=== PATIENT | male | born 1975 | race Caucasian/White ===

== ENCOUNTER 2016-11-26 10:28 | Emergency (ER) | payer OTHER ==
--- NOTE | 2016-11-26 13:53 | ED ORDER SUMMARY ---
..... Patient: GHASSAN CISNEROS OrderSheet [facility] VisitID: [id number] [address] [place] [address] 41y, M Registration Date/Time: 11/26/2016 ORDER SHEET Weight: 65.7 kg (stated) Allergies: Hydrocodone, Benadryl GENERAL ORDERS: CBC w Diff Urgent (10:44 11/26/2016 Radha MCCLELLAND) (Ack 10:48 KHoerner) (11:16 JBoardley R.N.) CMP Urgent (10:44 11/26/2016 Radha MCCLELLAND) (Ack 10:48 RUIBoerner) (11:16 JBoardlezaira R.N.) UA-Culture if indicated Urgent (10:44 11/26/2016 Radha MCCLELLAND) (Ack 10:48 RUBIoerner) (11:51 LWhalen R.N.) Amylase Urgent (10:44 11/26/2016 Radha MCCLELLAND) (Ack 10:48 RUBIoerner) (11:16 JBoardley R.N.) Lipase Urgent (10:44 11/26/2016 Radha MCCLELLAND) (Ack 10:48 RUBIoerner) (11:17 JBoardley R.N.) Urine Drug Screen Urgent (12:15 11/26/2016 Radha MCCLELLAND) (Ack 12:16 RUBIoerner) (12:27 JBoardley R.N.) MEDICATION ORDERS: IV FLUIDS: IV NS : initial bolus 1000 mL (1000 mL/hr), then 150 mL/hr for 4h (NOW); Urgent (10:44 11/26/2016 Radha MCCLELLAND) (11:16 JBoardlezaira R.N.) Haldol IV 2 mg (HIGH ALERT MEDICATION, NOW) (12:13 11/26/2016 Radha MCCLELLAND) (Ack 12:22 JBoardley R.N.) (12:26 JBoardley R.N.) Zofran IV 4 mg (NOW) (12:13 11/26/2016 Radha MCCLELLAND) (Ack 12:22 JBoardley R.N.) (12:27 JBoardley R.N.) ORDER SHEET NOTES: [Electronically signed by Magdy Hill R.N. (15:35 11/26/2016)] [Electronically signed by Sonny Walters MD (22:06 11/27/2016)] [Electronically locked/signed by Magdy Hill R.N. (15:35 11/26/2016)]
--- NOTE | 2016-11-26 13:53 | ED CLINICAL REPORT ---
Clinical Report - Physicians/Mid Levels [facility] [address] [place] [address] 11/26/2016 10:32 Patient: GHASSAN CISNEROS Time Seen: 10:45. Arrived- By private vehicle. Historian- patient. HISTORY OF PRESENT ILLNESS Chief Complaint: ABDOMINAL PAIN. It is described as "pain", sharp, stabbing and cramping. No radiation. It is described as generalized in location. At its maximum, severity described as 8 / 10. When seen in the E.D., severity described as 8 / 10. This started about 6 days ago and is still present. It was abrupt in onset and has been constant and waxing/waning. The patient has had nausea. No loss of appetite, vomiting or diarrhea. No recent travel. Similar symptoms previously: Many times, chronically. ( The patient reports that he has a history of cyclic vomiting syndrome. He says sometimes he's been told that this is "gastric migraines." He also has been told to stop smoking marijuana in the past he says "it's the only thing that works." He acknowledges that he showers frequently throughout each day and that this helps improve his symptoms. He also says that he is disabled by this and is not able to work.). REVIEW OF SYSTEMS The patient has had constipation and constipation and experienced sweats. No difficulty with urination, pain with urination, urinary frequency or urinary problems or chills. No fever, calf pain, chest pain, cough or difficulty breathing. No pedal edema, palpitations, black stools or bloody stools. Last bowel movement- 4 days ago. All systems otherwise negative, except as recorded above. PAST HISTORY PCP - SABINA Galindo (). Problems: Sick Contact. Irritable Bowel Syndrome. Substance Abuse. Gastritis. Gastroesophageal Reflux Disease. Abdominal Pain. Vomiting. Additional Surgeries: Adenoidectomy. Endoscopy []. Tonsillectomy. Medications: None. Allergies: Benadryl. Hydrocodone. SOCIAL HISTORY Current every day light tobacco smoker (cigarette)- less than 1/2 a pack per day. History of drug use: marijuana. No alcohol use. He lives with parent(s). FAMILY HISTORY Denies family medical history. ADDITIONAL NOTES The nursing notes have been reviewed. PHYSICAL EXAM Vital Signs: 11/26/2016 10:43 BP: 154/84. HR: 93. RR: 22. O2 saturation: 100%. Temp: 98.5 F. Have been reviewed. Appearance: Alert. Eyes: Pupils equal, round and reactive to light. ENT: Pharynx normal. Neck: Normal inspection. Neck supple. CVS: Normal heart rate and rhythm. Heart sounds normal. Respiratory: No respiratory distress. Breath sounds normal. Abdomen: Soft and nontender. Bowel sounds normal. No organomegaly. No mass. Back: Normal inspection. Skin: Skin warm and dry. Normal skin color. Normal skin turgor. Extremities: Extremities exhibit normal ROM. LABS, X-RAYS, AND EKG Laboratory Tests: UA-Culture if indicated: (ASHLEIGH: 11/26/2016 10:50) ( [facility] 11/26/2016 11:19) Final results Test Result Flag Units (Reference) URINE COLOR YELLOW URINE APPEARANCE CLEAR URINE GLUCOSE NEGATIVE (NEGATIVE) URINE BILIRUBIN NEGATIVE (NEGATIVE) URINE KETONE NEGATIVE (NEGATIVE) URINE SPECIFIC GRAVITY 1.020 (1.010-1.030) URINE PH 6.0 (5.0-8.0) URINE PROTEIN NEGATIVE (NEGATIVE) URINE UROBILINOGEN 0.2 EU/dL (0.2-1.0) URINE NITRITE NEGATIVE (NEGATIVE) URINE BLOOD NEGATIVE (NEGATIVE) URINE LEUK ESTERASE NEGATIVE (NEGATIVE) URINE RBC NONE SEEN rbc/hpf (0-1) URINE WBC 0-1 wbc/hpf (0-1) URINE EPITHELIAL CELLS NONE SEEN EPI/hpf (0-5) URINE BACTERIA NONE SEEN (NONE SEEN) URINE COMMENT CULT NOT INDICATED URINE CULTURES ARE SET-UP BASED ON THE FOLLOWING CRITERIA:POSITIVE NITRITEPOSITIVE LEUKOCYTE ESTERASEGREATER THAN 10 WHITE BLOOD CELLSMODERATE (2+) OR GREATER BACTERIA CBC w Diff: (ASHLEIGH: 11/26/2016 11:07) ( [facility] 11/26/2016 11:32) Final results Test Result Flag Units (Reference) WHITE BLOOD COUNT 10.5 K/uL (4.5-11.5) RED BLOOD COUNT 4.88 M/uL (4.50-5.90) HEMOGLOBIN 14.3 gm/dL (13.5-17.5) HEMATOCRIT 42.8 % (41.0-53.0) MEAN CELL VOLUME 88 fL (80-100) MEAN CORPUSCULAR HGB 29 pg (26-34) MEAN CORPUSCULAR HGB CONC 33 g/dL (31-37) RED CELL DISTRIBUTION WIDTH 13.7 % (11.6-14.8) PLATELET COUNT 190 K/uL (150-400) NEUTROPHIL % 76.2 H % (50-75) LYMPH % 17.3 L % (25-40) MONO % 3.3 % (3-14) EOSINOPHIL % 2.9 % (0-4) BASOPHIL % 0.3 % (0-2) Urine Drug Screen: (ASHLEIGH: 11/26/2016 10:50) ( MsgRcvd 11/26/2016 13:06) Final results Test Result Flag Units (Reference) AMPHETAMINE/METHAMPHETAMINE NEGATIVE (NEGATIVE) BARBITURATE NEGATIVE (NEGATIVE) BENZODIAZEPINE NEGATIVE (NEGATIVE) CANNABINOID POSITIVE H (NEGATIVE) COCAINE NEGATIVE (NEGATIVE) ECSTASY NEGATIVE (NEGATIVE) METHADONE NEGATIVE (NEGATIVE) OPIATE NEGATIVE (NEGATIVE) The urine drug screen is a qualitative screening test fordrug overdose and abuse. All screen results should beconsidered as presumptive.Drugs screened for are as follows:BenzodiazepinesCocaineAmphetamines/MetamphetaminesTHC (Tetrahydrocannabinol)OpiatesBarbituratesEcstasyMethadonePositive results are unconfirmed. For confirmation, notifythe lab for the specimen to be sent to the reference lab.All confirmations must be performed by a differentmethodology.The ingestion of natural herbal and plant productscontaining Ephedra/Ephedra metabolites can produce in urineone or more substances capable of cross reacting withamphetamine/methamphetamine immunoassays. These testsprovide a preliminary result only. A more specificalternative chemical method must be used to obtain aconfirmed analytical result. CMP: (ASHLEIGH: 11/26/2016 11:07) ( WigRcvd 11/26/2016 11:51) Final results Test Result Flag Units (Reference) GLUCOSE 92 mg/dL (70-110) BUN 19 H mg/dL (7-18) CREATININE 0.8 mg/dL (0.6-1.3) Estimated GFR >60 mL/min Estimated GFR- >60 mL/min Note: Persistent reduction over 3 months in eGFR<60 mL/min/1.73 m2 defines CKD. Patients with eGFR values>=60 mL/min/1.73 m2 may also have CKD if evidence ofpersistent proteinuria. Additional information may be foundat www.kidney.org. SODIUM 144 mmol/L (136-145) POTASSIUM 4.3 mmol/L (3.5-5.1) CHLORIDE 106 mmol/L (98-107) CARBON DIOXIDE 26 mmol/L (21-32) CALCIUM 9.1 mg/dL (8.5-10.1) TOTAL PROTEIN 7.4 g/dL (6.4-8.2) ALBUMIN 4.1 g/dL (3.3-5.0) BILIRUBIN, TOTAL 0.4 mg/dL (0.0-1.0) ALKALINE PHOSPHATASE 83 U/L (46-116) AST (SGOT) 20 U/L (15-37) ALT (SGPT) 26 U/L (12-78) LIPASE 152 U/L (73-393) AMYLASE 70 U/L (25-115) . PROGRESS AND PROCEDURES Course of Care: Patient was treated in the emergency room with haloperidol. Shortly after the administration of this he said that he felt agitated and that his skin was crawling. Nursing staff report that he was pacing the room as well. Patient/family counseled. Old medical records reviewed. Disposition: Discharged. Condition: stable. CLINICAL IMPRESSION Adverse drug reaction. (halo as discussedperidol - please inform future providers of this adverse reaction). Chronic generalized abdominal pain. cannabinoid hyperemesis syndrome cyclic vomiting syndrome. INSTRUCTIONS No driving or operating machinery while taking medication. Sedative medication was given during your visit. Drink plenty of fluids. Avoid marijuana. (With your doctors about whether he would benefit from medications usually used to treat migraine headaches as discussed.). Warnings: Further evaluation is necessary. GENERAL WARNINGS: Return or contact your physician immediately if your condition worsens or changes unexpectedly, if not improving as expected, or if other problems arise. Prescription Medications: Zofran 4 mg: Take 1 orally every six hours as needed for nausea/vomiting. Dispense ten (10). No refills. Substitution is permissible. Follow-up: Follow up with a state inspector and neurologist- as recommended by your primary care physician. Understanding of the discharge instructions verbalized by patient. Follow-up with: [facility], , , [address], , [place], [address] Follow up tomorrow. Call for an appointment. (Electronically signed by Sonny Walters MD 11/27/2016 22:06)
--- NOTE | 2016-11-26 13:53 | ED NURSING NOTES ---
Clinical Report - Nurses [place] [address] [place] [address] 11/26/2016 10:32 Patient: GHASSAN CISNEROS TRIAGE Triage time 10:44 Nov 26 2016. Acuity: LEVEL 3. Chief Complaint: ABDOMINAL PAIN and NAUSEA. MAYELA COMA SCORE: Mayela Coma Scale: 15- eyes open spontaneously (4); best verbal response- oriented x 4 (5); best motor response- obeys commands (6). --10:53 Magdy Hill R.N. 10:43 11/26/16. BP: 154/84. HR: 93. RR: 22. O2 saturation: 100%. Temp: 98.5 F. Pain level now 8/10. --10:53 Magdy Hill R.N. Weight: 65.7 kg stated. Height/Length: 70 inches Per Patient. BMI: 20.8. --10:50 Magdy Hill R.N. Medications None. --10:48 Magdy Hill R.N. Allergies Hydrocodone. --10:49 Magdy Hill R.N. Benadryl. --10:49 Magdy Hill R.N. History Arrived by private vehicle. Historian: patient. Accompanied by family. Primary physician (). ( 2 months of severe abdominal pains which come and go.). PAST MEDICAL HX: No history of diabetes mellitus. No history of gastroesophageal reflux disease, peptic ulcer disease or gallstones. Immunizations: status is unknown. SOCIAL HX: Light tobacco smoker (cigarette)- less than 1/2 a pack per day. History of drug use: marijuana. No alcohol use. He has had contact with a sick family member. SELF HARM ASSESSMENT: A self harm assessment was performed. The patient answered "yes" to the question "Have you recently felt down, depressed, or hopeless?" and "no" to the question "Do you have thoughts of harming or killing yourself?". FALL RISK ASSESSMENT: Fall risk assessment completed. No fall risk identified. NUTRITIONAL RISK ASSESSMENT: The nutritional risk assessment revealed no deficiencies. FUNCTIONAL ASSESSMENT: Functional assessment: no impairments noted. LEARNING NEEDS ASSESSMENT: The learning needs assessment revealed no barriers. ABUSE ASSESSMENT: Abuse assessment: (yes) The patient was asked "Do you feel safe in your home?". SKIN INTEGRITY ASSESSMENT: Skin integrity risk assessment completed. No skin integrity risk identified. --10:53 Magdy Hill R.N. The patient has had nausea, vomiting and abdominal pain. Last oral intake by patient was breakfast. --10:54 Magdy Hill R.N. PROBLEMS: Irritable Bowel Syndrome. Substance Abuse. Gastritis. Gastroesophageal Reflux Disease. Abdominal Pain. Vomiting. Immunizations. --10:51 Magdy Hill R.N. ADDITIONAL SURGERIES: Adenoidectomy. Endoscopy []. Tonsillectomy. --10:51 Magdy Hill R.N. Interventions ID and allergy band on patient. --10:53 Magdy Hill R.N. PHYSICAL ASSESSMENT Ambulatory to room. GENERAL / NEURO / PSYCH: Alert. Oriented X 4. Appears in pain, anxious and in distress. HEENT: Mucous membranes are pink. RESPIRATORY: Respirations not labored. Breath sounds within normal limits. CVS: Normal sinus rhythm noted. Capillary refill less than 2 seconds. GI / : The patient has had nausea. Emesis noted. Abdominal tenderness in the upper abdomen. Normal genitalia. ( Last BM 4 days ago). SKIN: Skin is warm and dry. --10:55 Magdy Hill R.N. NURSING PROGRESS NOTES The initial plan of care for this patient includes an assessment with efforts to address patient positioning; impairment of the gastrointestinal system. Pulse oximeter and NIBP monitor placed on patient. Patient gowned. Head of bed elevated (45). Reassurance given. Call light placed in reach. Side rails up x 1. Bed placed in lowest position. Brakes of bed on. --10:55 Magdy Hill R.N. 11:06 11/26/2016 One (1) unsuccessful IV access attempt including the left antecubital space. Applied manual pressure. --11:11 Mary Valverde R.N. <<STRICKEN ENTRY-- Patient ID band checked for patient name and birthdate. Blood samples drawn from the left antecubital space with syringe 22g by nurse ; labeled in presence of the patient and sent to lab: green and purple top. --11:12 Mary Valverde R.N. --END STRIKE>> Charted On Wrong Patient --11:24 Mary Valverde R.N. 11:06 11/26/2016 Site #1 started via IV in the right wrist with an 22g angiocath, with aseptic technique and good blood return; one attempt. Blood drawn: rainbow set. Labeled in the presence of the patient and sent to the lab. Saline lock flushed with 10 mL saline. --11:16 Gera Solorio R.N. 11:11/26/2016 Started bag #1 1000 mL IV Fluids IV NS (Saline); at 1000 mL/hr over 1 hour(s) via site #1. Allergies verified and confirmed 5 rights. IV patency established. IV site checked: no pain, redness, or swelling. IV flushed thoroughly pre- and post-medication administration. Completed per protocol. --11:16 Gera Solorio R.N. <<STRICKEN ENTRY-- 11:21 11/26/16. RR: 16. O2 saturation: 99% on nasal cannula at 2 liters/minute. --11:23 Mary Valverde R.N. --END STRIKE>> Charted on wrong patient. --11:24 Mary Valverde R.N. <<STRICKEN ENTRY-- 11:23 11/26/16. Patient informed about reason for wait and about plan of care. ( pt states he feels SOB. Dr. Walters notified. pt given water.). --11:23 Mary Valverde R.N. --END STRIKE>> Charted On Wrong Patient --11:24 Mary Valverde R.N. late entry - (accidently cancelled previous entry) 11:12. Patient ID band checked for patient name and birthdate. Blood samples drawn from the left antecubital space with syringe and 22g needle by nurse ; labeled in presence of the patient and sent to lab: green and purple top. --11:27 Mary Valverde R.N. 12:26 11/26/2016 HALDOL (Haloperidol Lactate) IVP 2 mg given over 2 minute(s) via site #1. Allergies verified, confirmed 5 rights and sedative warning given to the patient. IV patency established. IV site checked: no pain, redness, or swelling. IV flushed thoroughly pre- and post-medication administration. IVP given by RN. --12:26 Gera Solorio R.N. 12:27 11/26/2016 Zofran (Ondansetron HCl) IVP 4 mg given over 2 minute(s) via site #1. Allergies verified and confirmed 5 rights. IV patency established. IV site checked: no pain, redness, or swelling. IV flushed thoroughly pre- and post-medication administration. IVP given by RN. --12:27 Gera Solorio R.N. ( Patient pacing in room states feels like skin is on fire and is feeling very agitated. States no pain relief in abdomen. Reported to MD no further orders received.). --12:53 Magdy Hill R.N. 13:28 pt still pacing in room, he states the pain is "better" but he is sstill feeling like he "wants to crawl out of his skin". --13:30 Pam Medrano R.N. DISPOSITION / DISCHARGE 13:44 11/26/2016 Site #1 removed upon discharge. Catheter intact. Bandage applied. --13:59 Fareed Troy R.N. 14:00 11/26/16. Departure time: 1348. ( pt agitated at discharge, brother coming to pickup pt, Discharge instructions given with MD at bedside. Discharge vitals not performed as to not agitate pt and MD aware.). No learning barriers present. Discharge instructions provided and reviewed with the patient. Reviewed medication(s) side effects, precautions, dosing and course information. Prescription(s) given to the patient. Reviewed need to stop smoking (stop using marijuana). Patient verbalized understanding. Written instructions provided in [place]. The patient was discharged by the physician. He was discharged home. He left the Emergency Department ambulatory and via private vehicle. Family member driving. --14:00 Fareed Troy R.N. Locked/Released at 11/26/2016 15:35 by Magdy Hill R.N.
--- NOTE | 2016-11-26 13:53 | ED ORDER SUMMARY ---
..... Patient: GHASSAN CISNEROS OrderSheet [facility] VisitID: [id number] [address] [place] [address] 41y, M Registration Date/Time: 11/26/2016 ORDER SHEET Weight: 65.7 kg (stated) Allergies: Hydrocodone, Benadryl GENERAL ORDERS: CBC w Diff Urgent (10:44 11/26/2016 Radha MCCLELLAND) (Ack 10:48 KHoerner) (11:16 JBoardley R.N.) CMP Urgent (10:44 11/26/2016 Radha MCCLELLAND) (Ack 10:48 RUBIoerner) (11:16 JBoardlezaira R.N.) UA-Culture if indicated Urgent (10:44 11/26/2016 Radha MCCLELLAND) (Ack 10:48 RUBIoerner) (11:51 LWhalen R.N.) Amylase Urgent (10:44 11/26/2016 Radha MCCLELLAND) (Ack 10:48 RUBIoerner) (11:16 JBoardley R.N.) Lipase Urgent (10:44 11/26/2016 Radha MCCLELLAND) (Ack 10:48 RUBIoerner) (11:17 JBoardley R.N.) Urine Drug Screen Urgent (12:15 11/26/2016 Radha MCCLELLAND) (Ack 12:16 RUBIoerner) (12:27 JBoardley R.N.) MEDICATION ORDERS: IV FLUIDS: IV NS : initial bolus 1000 mL (1000 mL/hr), then 150 mL/hr for 4h (NOW); Urgent (10:44 11/26/2016 Radha MCCLELLAND) (11:16 JBoardlezaira R.N.) Haldol IV 2 mg (HIGH ALERT MEDICATION, NOW) (12:13 11/26/2016 Radha MCCLELLAND) (Ack 12:22 JBoardley R.N.) (12:26 JBoardley R.N.) Zofran IV 4 mg (NOW) (12:13 11/26/2016 Radha MCCLELLAND) (Ack 12:22 JBoardley R.N.) (12:27 JBoardley R.N.) ORDER SHEET NOTES: [Electronically signed by Magdy Hill R.N. (15:35 11/26/2016)] [Electronically signed by Sonny Walters MD (22:06 11/27/2016)] [Electronically locked/signed by Magdy Hill R.N. (15:35 11/26/2016)]
--- NOTE | 2016-11-26 13:53 | ED CLINICAL REPORT ---
Clinical Report - Physicians/Mid Levels [facility] [address] [place] [address] 11/26/2016 10:32 Patient: GHASSAN CISNEROS Time Seen: 10:45. Arrived- By private vehicle. Historian- patient. HISTORY OF PRESENT ILLNESS Chief Complaint: ABDOMINAL PAIN. It is described as "pain", sharp, stabbing and cramping. No radiation. It is described as generalized in location. At its maximum, severity described as 8 / 10. When seen in the E.D., severity described as 8 / 10. This started about 6 days ago and is still present. It was abrupt in onset and has been constant and waxing/waning. The patient has had nausea. No loss of appetite, vomiting or diarrhea. No recent travel. Similar symptoms previously: Many times, chronically. ( The patient reports that he has a history of cyclic vomiting syndrome. He says sometimes he's been told that this is "gastric migraines." He also has been told to stop smoking marijuana in the past he says "it's the only thing that works." He acknowledges that he showers frequently throughout each day and that this helps improve his symptoms. He also says that he is disabled by this and is not able to work.). REVIEW OF SYSTEMS The patient has had constipation and constipation and experienced sweats. No difficulty with urination, pain with urination, urinary frequency or urinary problems or chills. No fever, calf pain, chest pain, cough or difficulty breathing. No pedal edema, palpitations, black stools or bloody stools. Last bowel movement- 4 days ago. All systems otherwise negative, except as recorded above. PAST HISTORY PCP - SABINA Galindo (). Problems: Sick Contact. Irritable Bowel Syndrome. Substance Abuse. Gastritis. Gastroesophageal Reflux Disease. Abdominal Pain. Vomiting. Additional Surgeries: Adenoidectomy. Endoscopy []. Tonsillectomy. Medications: None. Allergies: Benadryl. Hydrocodone. SOCIAL HISTORY Current every day light tobacco smoker (cigarette)- less than 1/2 a pack per day. History of drug use: marijuana. No alcohol use. He lives with parent(s). FAMILY HISTORY Denies family medical history. ADDITIONAL NOTES The nursing notes have been reviewed. PHYSICAL EXAM Vital Signs: 11/26/2016 10:43 BP: 154/84. HR: 93. RR: 22. O2 saturation: 100%. Temp: 98.5 F. Have been reviewed. Appearance: Alert. Eyes: Pupils equal, round and reactive to light. ENT: Pharynx normal. Neck: Normal inspection. Neck supple. CVS: Normal heart rate and rhythm. Heart sounds normal. Respiratory: No respiratory distress. Breath sounds normal. Abdomen: Soft and nontender. Bowel sounds normal. No organomegaly. No mass. Back: Normal inspection. Skin: Skin warm and dry. Normal skin color. Normal skin turgor. Extremities: Extremities exhibit normal ROM. LABS, X-RAYS, AND EKG Laboratory Tests: UA-Culture if indicated: (ASHLEIGH: 11/26/2016 10:50) ( [facility] 11/26/2016 11:19) Final results Test Result Flag Units (Reference) URINE COLOR YELLOW URINE APPEARANCE CLEAR URINE GLUCOSE NEGATIVE (NEGATIVE) URINE BILIRUBIN NEGATIVE (NEGATIVE) URINE KETONE NEGATIVE (NEGATIVE) URINE SPECIFIC GRAVITY 1.020 (1.010-1.030) URINE PH 6.0 (5.0-8.0) URINE PROTEIN NEGATIVE (NEGATIVE) URINE UROBILINOGEN 0.2 EU/dL (0.2-1.0) URINE NITRITE NEGATIVE (NEGATIVE) URINE BLOOD NEGATIVE (NEGATIVE) URINE LEUK ESTERASE NEGATIVE (NEGATIVE) URINE RBC NONE SEEN rbc/hpf (0-1) URINE WBC 0-1 wbc/hpf (0-1) URINE EPITHELIAL CELLS NONE SEEN EPI/hpf (0-5) URINE BACTERIA NONE SEEN (NONE SEEN) URINE COMMENT CULT NOT INDICATED URINE CULTURES ARE SET-UP BASED ON THE FOLLOWING CRITERIA:POSITIVE NITRITEPOSITIVE LEUKOCYTE ESTERASEGREATER THAN 10 WHITE BLOOD CELLSMODERATE (2+) OR GREATER BACTERIA CBC w Diff: (ASHLEIGH: 11/26/2016 11:07) ( [facility] 11/26/2016 11:32) Final results Test Result Flag Units (Reference) WHITE BLOOD COUNT 10.5 K/uL (4.5-11.5) RED BLOOD COUNT 4.88 M/uL (4.50-5.90) HEMOGLOBIN 14.3 gm/dL (13.5-17.5) HEMATOCRIT 42.8 % (41.0-53.0) MEAN CELL VOLUME 88 fL (80-100) MEAN CORPUSCULAR HGB 29 pg (26-34) MEAN CORPUSCULAR HGB CONC 33 g/dL (31-37) RED CELL DISTRIBUTION WIDTH 13.7 % (11.6-14.8) PLATELET COUNT 190 K/uL (150-400) NEUTROPHIL % 76.2 H % (50-75) LYMPH % 17.3 L % (25-40) MONO % 3.3 % (3-14) EOSINOPHIL % 2.9 % (0-4) BASOPHIL % 0.3 % (0-2) Urine Drug Screen: (ASHLEIGH: 11/26/2016 10:50) ( MsgRcvd 11/26/2016 13:06) Final results Test Result Flag Units (Reference) AMPHETAMINE/METHAMPHETAMINE NEGATIVE (NEGATIVE) BARBITURATE NEGATIVE (NEGATIVE) BENZODIAZEPINE NEGATIVE (NEGATIVE) CANNABINOID POSITIVE H (NEGATIVE) COCAINE NEGATIVE (NEGATIVE) ECSTASY NEGATIVE (NEGATIVE) METHADONE NEGATIVE (NEGATIVE) OPIATE NEGATIVE (NEGATIVE) The urine drug screen is a qualitative screening test fordrug overdose and abuse. All screen results should beconsidered as presumptive.Drugs screened for are as follows:BenzodiazepinesCocaineAmphetamines/MetamphetaminesTHC (Tetrahydrocannabinol)OpiatesBarbituratesEcstasyMethadonePositive results are unconfirmed. For confirmation, notifythe lab for the specimen to be sent to the reference lab.All confirmations must be performed by a differentmethodology.The ingestion of natural herbal and plant productscontaining Ephedra/Ephedra metabolites can produce in urineone or more substances capable of cross reacting withamphetamine/methamphetamine immunoassays. These testsprovide a preliminary result only. A more specificalternative chemical method must be used to obtain aconfirmed analytical result. CMP: (ASHLEIGH: 11/26/2016 11:07) ( WigRcvd 11/26/2016 11:51) Final results Test Result Flag Units (Reference) GLUCOSE 92 mg/dL (70-110) BUN 19 H mg/dL (7-18) CREATININE 0.8 mg/dL (0.6-1.3) Estimated GFR >60 mL/min Estimated GFR- >60 mL/min Note: Persistent reduction over 3 months in eGFR<60 mL/min/1.73 m2 defines CKD. Patients with eGFR values>=60 mL/min/1.73 m2 may also have CKD if evidence ofpersistent proteinuria. Additional information may be foundat www.kidney.org. SODIUM 144 mmol/L (136-145) POTASSIUM 4.3 mmol/L (3.5-5.1) CHLORIDE 106 mmol/L (98-107) CARBON DIOXIDE 26 mmol/L (21-32) CALCIUM 9.1 mg/dL (8.5-10.1) TOTAL PROTEIN 7.4 g/dL (6.4-8.2) ALBUMIN 4.1 g/dL (3.3-5.0) BILIRUBIN, TOTAL 0.4 mg/dL (0.0-1.0) ALKALINE PHOSPHATASE 83 U/L (46-116) AST (SGOT) 20 U/L (15-37) ALT (SGPT) 26 U/L (12-78) LIPASE 152 U/L (73-393) AMYLASE 70 U/L (25-115) . PROGRESS AND PROCEDURES Course of Care: Patient was treated in the emergency room with haloperidol. Shortly after the administration of this he said that he felt agitated and that his skin was crawling. Nursing staff report that he was pacing the room as well. Patient/family counseled. Old medical records reviewed. Disposition: Discharged. Condition: stable. CLINICAL IMPRESSION Adverse drug reaction. (halo as discussedperidol - please inform future providers of this adverse reaction). Chronic generalized abdominal pain. cannabinoid hyperemesis syndrome cyclic vomiting syndrome. INSTRUCTIONS No driving or operating machinery while taking medication. Sedative medication was given during your visit. Drink plenty of fluids. Avoid marijuana. (With your doctors about whether he would benefit from medications usually used to treat migraine headaches as discussed.). Warnings: Further evaluation is necessary. GENERAL WARNINGS: Return or contact your physician immediately if your condition worsens or changes unexpectedly, if not improving as expected, or if other problems arise. Prescription Medications: Zofran 4 mg: Take 1 orally every six hours as needed for nausea/vomiting. Dispense ten (10). No refills. Substitution is permissible. Follow-up: Follow up with a administrative tech and neurologist- as recommended by your primary care physician. Understanding of the discharge instructions verbalized by patient. Follow-up with: [facility], , , [address], , [place], [address] Follow up tomorrow. Call for an appointment. (Electronically signed by Sonny Walters MD 11/27/2016 22:06)
--- NOTE | 2016-11-28 02:39 | ED DISCHARGE INSTRUCTIONS ---
Patient: GHASSAN CISNEROS General Instructions [facility] VisitID: [id number] [address] [place] [address] 41y, M Registration Date/Time: 11/26/2016 Adverse drug reaction. (halo as discussedperidol - please inform future providers of this adverse reaction). Chronic generalized abdominal pain. cannabinoid hyperemesis syndrome cyclic vomiting syndrome. INSTRUCTIONS No driving or operating machinery while taking medication. Sedative medication was given during your visit. Drink plenty of fluids. Avoid marijuana. (With your doctors about whether he would benefit from medications usually used to treat migraine headaches as discussed.). Warnings: Further evaluation is necessary. GENERAL WARNINGS: Return or contact your physician immediately if your condition worsens or changes unexpectedly, if not improving as expected, or if other problems arise. Prescription Medications: Zofran 4 mg: Take 1 orally every six hours as needed for nausea/vomiting. Dispense ten (10). No refills. Substitution is permissible. Follow-up: Follow up with a fiberglass fabricator and neurologist- as recommended by your primary care physician. Understanding of the discharge instructions verbalized by patient. Follow-up with: [facility], , , [address], [place], [address] Follow up tomorrow. Call for an appointment. ADDITIONAL INFORMATION Drug Reaction: Dystonic You are having a muscular reaction to a drug you have taken. This can cause tightening or stiffening of the muscles of the eyes, tongue, jaw, neck, back, arms and legs. If untreated, this reaction would last until the drug is eliminated naturally from your body. This could take up to three days. However, you have been treated with an "antidote", to reverse this reaction (Benadryl (diphenhydramine), Cogentin (benzatropine), or Artane (trihexyphenidyl) . Home Care: 1) You may eat and drink normally. Take your other prescribed meds as directed. Avoid alcohol during the next three days. 2) Take the antidote medicine for at least two days (48 hours) to prevent recurrence of symptoms. After two days, most of the offending medicine should be eliminated from your body. 3) If you feel the symptoms return after stopping the antidote, start the antidote medicine again for another 48 hours. If this does not help or if you run out of medicine, contact your doctor. Preventing Future Reactions 1) Most dystonic reactions are due to a class of drugs called PHENOTHIAZINES. This includes anti-nausea drugs such as Compazine, Phenergan, Tigan and Inapsine; as well as tranquillizers such as Thorazine, Mellaril and Haldol. If you have reacted to one drug in this class, any drug in this class will probably cause the same reaction. 2) Unless specifically advised by your doctor, do not take theoffending drug ever again . It will cause the same reaction in the future. In some cases where the offending drug is needed to treat your condition and no alternatives exist, each dose can be taken along with the antidote medicine. 3) Whenever you go to a doctor or hospital for treatment, tell the staff of your reaction to this drug so that it will not be used. Follow Up with your doctor as advised or in three days , if you are still feeling any muscle tightness. Get Prompt Medical Attention if any of the following occur: -- Symptoms return and are not controlled by starting the antidote medicine again -- Symptoms continue or require antidote medicine for more than three days Ondansetron Oral disintegrating tablet What is this medicine? ONDANSETRON (on SCOTT se fareed) is used to treat nausea and vomiting caused by chemotherapy. It is also used to prevent or treat nausea and vomiting after surgery. How should I use this medicine? These tablets are made to dissolve in the mouth. Do not try to push the tablet through the foil backing. With dry hands, peel away the foil backing and gently remove the tablet. Place the tablet in the mouth and allow it to dissolve, then swallow. While you may take these tablets with water, it is not necessary to do so. Talk to your laborer/key man regarding the use of this medicine in children. Special care may be needed. What side effects may I notice from receiving this medicine? Side effects that you should report to your doctor or health respite care provider as soon as possible: allergic reactions like skin rash, itching or hives, swelling of the face, lips, or tongue breathing problems dizziness fast or irregular heartbeat feeling faint or lightheaded, falls fever and chills swelling of the hands and feet tightness in the chest Side effects that usually do not require medical attention (report to your doctor or health respite care provider if they continue or are bothersome): constipation or diarrhea headache What may interact with this medicine? Do not take this medicine with any of the following medications: -apomorphine -cisapride -dofetilide -dronedarone -pimozide -thioridazine -ziprasidone This medicine may also interact with the following medications: -carbamazepine -phenytoin -rifampicin -tramadol -other medicines that prolong the QT interval (cause an abnormal heart rhythm) What if I miss a dose? If you miss a dose, take it as soon as you can. If it is almost time for your next dose, take only that dose. Do not take double or extra doses. Where should I keep my medicine? Keep out of the reach of children. Store between 2 and 30 degrees C (36 and 86 degrees F). Throw away any unused medicine after the expiration date. What should I tell my health care provider before I take this medicine? They need to know if you have any of these conditions: heart disease history of irregular heartbeat liver disease low levels of magnesium or potassium in the blood an unusual or allergic reaction to ondansetron, granisetron, other medicines, foods, dyes, or preservatives or trying to get breast-feeding What should I watch for while using this medicine? Check with your doctor or health respite care provider as soon as you can if you have any sign of an allergic reaction. You have been given the following additional information: Drug Reaction, Dystonic Ondansetron Oral disintegrating tablet No driving or operating machinery while taking medication. Sedative medication was given during your visit. (Electronically signed by Sonny Walters MD 11/27/2016 22:06)
--- NOTE | 2016-11-28 02:39 | ED MAR SUMMARY ---
..... Medication Administration Record [facility] [address] [place] [address] Patient: GHASSAN CISNEROS Visit ID: [id number] 41y, M Weight: 65.7 kg Height/Length: 70 in BMI: 20.8 ALLERGIES: Benadryl, Hydrocodone Start 11:06 11/26/2016 Gera Solorio R.N. Medication Administered: IV NS (SALINE), Dose: IV Fluids over 1 hour(s), Rate: 1000 mL/hr, Dispensed: 1000 mL bag, Site: #1 right wrist. Medication Ordered: IV NS : initial bolus 1000 mL (1000 mL/hr), then 150 mL/hr for 4h (NOW); Urgent. Given 12:26 11/26/2016 Gera Solorio R.N. Medication Administered: HALDOL [IVP] (HALOPERIDOL LACTATE), Dose: 2 mg IVP over 2 minute(s), Site: #1 right wrist. Medication Ordered: Haldol IV 2 mg (HIGH ALERT MEDICATION, NOW). Given 12:11/26/2016 Gera Solorio R.N. Medication Administered: ZOFRAN [IVP] (ONDANSETRON HCL), Dose: 4 mg IVP over 2 minute(s), Site: #1 right wrist. Medication Ordered: Zofran IV 4 mg (NOW).
--- NOTE | 2016-11-28 02:39 | ED DISCHARGE INSTRUCTIONS ---
Patient: GHASSAN CISNEROS General Instructions [facility] VisitID: [id number] [address] [place] [address] 41y, M Registration Date/Time: 11/26/2016 Adverse drug reaction. (halo as discussedperidol - please inform future providers of this adverse reaction). Chronic generalized abdominal pain. cannabinoid hyperemesis syndrome cyclic vomiting syndrome. INSTRUCTIONS No driving or operating machinery while taking medication. Sedative medication was given during your visit. Drink plenty of fluids. Avoid marijuana. (With your doctors about whether he would benefit from medications usually used to treat migraine headaches as discussed.). Warnings: Further evaluation is necessary. GENERAL WARNINGS: Return or contact your physician immediately if your condition worsens or changes unexpectedly, if not improving as expected, or if other problems arise. Prescription Medications: Zofran 4 mg: Take 1 orally every six hours as needed for nausea/vomiting. Dispense ten (10). No refills. Substitution is permissible. Follow-up: Follow up with a fire control technician and neurologist- as recommended by your primary care physician. Understanding of the discharge instructions verbalized by patient. Follow-up with: [facility], , , [address], [place], [address] Follow up tomorrow. Call for an appointment. ADDITIONAL INFORMATION Drug Reaction: Dystonic You are having a muscular reaction to a drug you have taken. This can cause tightening or stiffening of the muscles of the eyes, tongue, jaw, neck, back, arms and legs. If untreated, this reaction would last until the drug is eliminated naturally from your body. This could take up to three days. However, you have been treated with an "antidote", to reverse this reaction (Benadryl (diphenhydramine), Cogentin (benzatropine), or Artane (trihexyphenidyl) . Home Care: 1) You may eat and drink normally. Take your other prescribed meds as directed. Avoid alcohol during the next three days. 2) Take the antidote medicine for at least two days (48 hours) to prevent recurrence of symptoms. After two days, most of the offending medicine should be eliminated from your body. 3) If you feel the symptoms return after stopping the antidote, start the antidote medicine again for another 48 hours. If this does not help or if you run out of medicine, contact your doctor. Preventing Future Reactions 1) Most dystonic reactions are due to a class of drugs called PHENOTHIAZINES. This includes anti-nausea drugs such as Compazine, Phenergan, Tigan and Inapsine; as well as tranquillizers such as Thorazine, Mellaril and Haldol. If you have reacted to one drug in this class, any drug in this class will probably cause the same reaction. 2) Unless specifically advised by your doctor, do not take theoffending drug ever again . It will cause the same reaction in the future. In some cases where the offending drug is needed to treat your condition and no alternatives exist, each dose can be taken along with the antidote medicine. 3) Whenever you go to a doctor or hospital for treatment, tell the staff of your reaction to this drug so that it will not be used. Follow Up with your doctor as advised or in three days , if you are still feeling any muscle tightness. Get Prompt Medical Attention if any of the following occur: -- Symptoms return and are not controlled by starting the antidote medicine again -- Symptoms continue or require antidote medicine for more than three days Ondansetron Oral disintegrating tablet What is this medicine? ONDANSETRON (on SCOTT se fareed) is used to treat nausea and vomiting caused by chemotherapy. It is also used to prevent or treat nausea and vomiting after surgery. How should I use this medicine? These tablets are made to dissolve in the mouth. Do not try to push the tablet through the foil backing. With dry hands, peel away the foil backing and gently remove the tablet. Place the tablet in the mouth and allow it to dissolve, then swallow. While you may take these tablets with water, it is not necessary to do so. Talk to your credit cashier regarding the use of this medicine in children. Special care may be needed. What side effects may I notice from receiving this medicine? Side effects that you should report to your doctor or health auto care center manager as soon as possible: allergic reactions like skin rash, itching or hives, swelling of the face, lips, or tongue breathing problems dizziness fast or irregular heartbeat feeling faint or lightheaded, falls fever and chills swelling of the hands and feet tightness in the chest Side effects that usually do not require medical attention (report to your doctor or health auto care center manager if they continue or are bothersome): constipation or diarrhea headache What may interact with this medicine? Do not take this medicine with any of the following medications: -apomorphine -cisapride -dofetilide -dronedarone -pimozide -thioridazine -ziprasidone This medicine may also interact with the following medications: -carbamazepine -phenytoin -rifampicin -tramadol -other medicines that prolong the QT interval (cause an abnormal heart rhythm) What if I miss a dose? If you miss a dose, take it as soon as you can. If it is almost time for your next dose, take only that dose. Do not take double or extra doses. Where should I keep my medicine? Keep out of the reach of children. Store between 2 and 30 degrees C (36 and 86 degrees F). Throw away any unused medicine after the expiration date. What should I tell my health care provider before I take this medicine? They need to know if you have any of these conditions: heart disease history of irregular heartbeat liver disease low levels of magnesium or potassium in the blood an unusual or allergic reaction to ondansetron, granisetron, other medicines, foods, dyes, or preservatives or trying to get breast-feeding What should I watch for while using this medicine? Check with your doctor or health auto care center manager as soon as you can if you have any sign of an allergic reaction. You have been given the following additional information: Drug Reaction, Dystonic Ondansetron Oral disintegrating tablet No driving or operating machinery while taking medication. Sedative medication was given during your visit. (Electronically signed by Sonny Walters MD 11/27/2016 22:06)
--- NOTE | 2016-11-28 02:39 | ED MED RECONCILIATION SUMMARY ---
Patient: GHASSAN CISNEROS Medication Reconciliation Report [facility] VisitID: [id number] [address] [place] [address] 41y, M Registration Date/Time: 11/26/2016 Weight: 65.7 kg Height/Length: 70 in. BMI: 20.8 ALLERGIES: Benadryl, Hydrocodone The patient's Home Medications are listed below: NONE. The source(s) of the original Home Medication information: Not obtained. The following Medications were given to the patient in the Emergency Department: IV NS IV Fluids bolus 0, then 1000 mL/hr, administered: 11/26/2016 11:06:00 AM HALDOL [IVP] IVP 2 mg, administered: 11/26/2016 12:26:00 PM Zofran [IVP] IVP 4 mg, administered: 11/26/2016 12:27:00 PM The following Medications were prescribed to the patient: Zofran 4 mg: Take 1 orally every six hours as needed for nausea/vomiting. Dispense ten (10). No refills. Substitution is permissible. -- Sonny Walters MD
--- NOTE | 2016-11-28 02:39 | ED MED RECONCILIATION SUMMARY ---
Patient: GHASSAN CISNEROS Medication Reconciliation Report [facility] VisitID: [id number] [address] [place] [address] 41y, M Registration Date/Time: 11/26/2016 Weight: 65.7 kg Height/Length: 70 in. BMI: 20.8 ALLERGIES: Benadryl, Hydrocodone The patient's Home Medications are listed below: NONE. The source(s) of the original Home Medication information: Not obtained. The following Medications were given to the patient in the Emergency Department: IV NS IV Fluids bolus 0, then 1000 mL/hr, administered: 11/26/2016 11:06:00 AM HALDOL [IVP] IVP 2 mg, administered: 11/26/2016 12:26:00 PM Zofran [IVP] IVP 4 mg, administered: 11/26/2016 12:27:00 PM The following Medications were prescribed to the patient: Zofran 4 mg: Take 1 orally every six hours as needed for nausea/vomiting. Dispense ten (10). No refills. Substitution is permissible. -- Sonny Walters MD
--- NOTE | 2016-11-28 02:39 | ED MAR SUMMARY ---
..... Medication Administration Record [facility] [address] [place] [address] Patient: GHASSAN CISNEROS Visit ID: [id number] 41y, M Weight: 65.7 kg Height/Length: 70 in BMI: 20.8 ALLERGIES: Benadryl, Hydrocodone Start 11:06 11/26/2016 Gera Solorio R.N. Medication Administered: IV NS (SALINE), Dose: IV Fluids over 1 hour(s), Rate: 1000 mL/hr, Dispensed: 1000 mL bag, Site: #1 right wrist. Medication Ordered: IV NS : initial bolus 1000 mL (1000 mL/hr), then 150 mL/hr for 4h (NOW); Urgent. Given 12:26 11/26/2016 Gera Solorio R.N. Medication Administered: HALDOL [IVP] (HALOPERIDOL LACTATE), Dose: 2 mg IVP over 2 minute(s), Site: #1 right wrist. Medication Ordered: Haldol IV 2 mg (HIGH ALERT MEDICATION, NOW). Given 12:11/26/2016 Gera Solorio R.N. Medication Administered: ZOFRAN [IVP] (ONDANSETRON HCL), Dose: 4 mg IVP over 2 minute(s), Site: #1 right wrist. Medication Ordered: Zofran IV 4 mg (NOW).
== END 2016-11-26 13:48 | disposition home or self-care (01) ==
LOC: ED SRH 10:28
DX: T50.995A Adverse effect of other drugs, medicaments and biological substances, initial encounter (principal); R10.84 Generalized abdominal pain; R11.10 Vomiting, unspecified; F12.10 Cannabis abuse, uncomplicated; F17.210 Nicotine dependence, cigarettes, uncomplicated; K21.9 Gastro-esophageal reflux disease without esophagitis; Z88.5 Allergy status to narcotic agent; Z88.8 Allergy status to other drugs, medicaments and biological substances
CPT/HCPCS: 90004; 90100; 92235; 92530; 92760; 92761; 92762; 92763; 92764; 92765; 92766; 92767; 95059

== ENCOUNTER 2017-03-18 20:48 | Emergency (ER) | payer OTHER ==
--- NOTE | 2017-03-18 23:18 | ED CLINICAL REPORT ---
Clinical Report - Physicians/Mid Levels [facility] [address] [place] [address] 03/18/2017 20:48 Patient: GHASSAN CISNEROS Time Seen: 21:15. Arrived- By private vehicle. Historian- patient and family. HISTORY OF PRESENT ILLNESS Chief Complaint: ABDOMINAL PAIN. At its maximum, severity described as severe. When seen in the E.D., severity described as severe. It is described as "pain" and it is described as located in the upper abdomen. This started about 11 years ago, worse for days to weeks. and is still present. It has been constant. The patient has had nausea. No vomiting or diarrhea. (11 years 4 days worse). Similar symptoms previously: Many times. ( On a prior visit he did well with haldol and benadryl.. But subsequently he had a dystonic reacttion to Benadryl by his history.). REVIEW OF SYSTEMS No constipation, black stools, difficulty with urination, pain with urination or bloody stools. No fever, sore throat, blurred vision, chest pain or difficulty breathing. No cough, joint pain or skin rash. The patient has had a headache. 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 Problems: Sick Contact. Irritable Bowel Syndrome. Substance Abuse. Gastritis. Gastroesophageal Reflux Disease. Abdominal Pain. Vomiting. Additional Surgeries: Adenoidectomy. Endoscopy []. Tonsillectomy. SOCIAL HISTORY Current every day smoker. History of drug use By urine tox screen: marijuana. ADDITIONAL NOTES The nursing notes have been reviewed. PHYSICAL EXAM Vital Signs: 03/18/2017 23:50 BP: 110/62. HR: 73. RR: 16. O2 saturation: 99%. Pain level now: 11/29. 03/18/2017 21:00 BP: 110/74. HR: 76. RR: 22. O2 saturation: 100%. Temp: 98.3 F. Pain level now: 06/01. Appearance: Alert. Patient in severe distress. (Writhing and clenching fists). Eyes: No scleral icterus. ENT: Pharynx normal. Respiratory: No respiratory distress. Breath sounds normal. Chest nontender. Abdomen: Mild tenderness diffusely. Bowel sounds normal. Mass present. No rebound tenderness or guarding. Back: Normal inspection. Skin: Skin warm. Normal skin color. Extremities: Extremities exhibit normal ROM. No lower extremity edema. LABS, X-RAYS, AND EKG Laboratory Tests: UA-Culture if indicated: (ASHLEIGH: 03/18/2017 21:12) ( [facility] 03/18/2017 22:30) Final results Test Result Flag Units (Reference) URINE COLOR YELLOW URINE APPEARANCE CLEAR URINE GLUCOSE NEGATIVE (NEGATIVE) URINE BILIRUBIN NEGATIVE (NEGATIVE) URINE KETONE NEGATIVE (NEGATIVE) URINE SPECIFIC GRAVITY 1.025 (1.010-1.030) URINE PH 6.0 (5.0-8.0) URINE PROTEIN NEGATIVE (NEGATIVE) URINE UROBILINOGEN 0.2 EU/dL (0.2-1.0) URINE NITRITE NEGATIVE (NEGATIVE) URINE BLOOD NEGATIVE (NEGATIVE) URINE LEUK ESTERASE NEGATIVE (NEGATIVE) URINE RBC NONE SEEN rbc/hpf (0-1) URINE WBC 0-1 wbc/hpf (0-1) URINE EPITHELIAL CELLS RARE EPI/hpf (0-5) URINE BACTERIA TRACE (<1+) (NONE SEEN) URINE COMMENT CULT NOT INDICATED URINE CULTURES ARE SET-UP BASED ON THE FOLLOWING CRITERIA:POSITIVE NITRITEPOSITIVE LEUKOCYTE ESTERASEGREATER THAN 10 WHITE BLOOD CELLSMODERATE (2+) OR GREATER BACTERIA CBC w Diff: (ASHLEIGH: 03/18/2017 22:24) ( [facility] 03/18/2017 22:39) Final results Test Result Flag Units (Reference) WHITE BLOOD COUNT 10.9 K/uL (4.5-11.5) RED BLOOD COUNT 5.02 M/uL (4.50-5.90) HEMOGLOBIN 15.0 gm/dL (13.5-17.5) HEMATOCRIT 44.3 % (41.0-53.0) MEAN CELL VOLUME 88 fL (80-100) MEAN CORPUSCULAR HGB 30 pg (26-34) MEAN CORPUSCULAR HGB CONC 34 g/dL (31-37) RED CELL DISTRIBUTION WIDTH 13.1 % (11.6-14.8) PLATELET COUNT 267 K/uL (150-400) NEUTROPHIL % 66.3 % (50-75) LYMPH % 28.2 % (25-40) MONO % 3.3 % (3-14) EOSINOPHIL % 2.0 % (0-4) BASOPHIL % 0.2 % (0-2) Urine Drug Screen: (ASHLEIGH: 03/18/2017 21:12) ( [facility] 03/18/2017 22:09) Final results Test Result Flag Units (Reference) AMPHETAMINE/METHAMPHETAMINE NEGATIVE (NEGATIVE) BARBITURATE NEGATIVE (NEGATIVE) BENZODIAZEPINE NEGATIVE (NEGATIVE) CANNABINOID POSITIVE H (NEGATIVE) COCAINE NEGATIVE (NEGATIVE) ECSTASY NEGATIVE (NEGATIVE) METHADONE NEGATIVE (NEGATIVE) OPIATE POSITIVE H (NEGATIVE) The urine drug screen is a qualitative screening test fordrug overdose and abuse. All screen results should beconsidered as presumptive.Drugs screened for are as follows:BenzodiazepinesCocaineAmphetamines/MetamphetaminesTHC (Tetrahydrocannabinol)OpiatesBarbituratesEcstasyMethadonePositive results are unconfirmed. For confirmation, notifythe lab for the specimen to be sent to the reference lab.All confirmations must be performed by a differentmethodology.The ingestion of natural herbal and plant productscontaining Ephedra/Ephedra metabolites can produce in urineone or more substances capable of cross reacting withamphetamine/methamphetamine immunoassays. These testsprovide a preliminary result only. A more specificalternative chemical method must be used to obtain aconfirmed analytical result. CMP: (ASHLEIGH: 03/18/2017 22:24) ( [facility] 03/18/2017 22:51) Final results Test Result Flag Units (Reference) GLUCOSE 95 mg/dL (70-110) BUN 20 H mg/dL (7-18) CREATININE 1.1 mg/dL (0.6-1.3) Estimated GFR >60 mL/min Estimated GFR- >60 mL/min Note: Persistent reduction over 3 months in eGFR<60 mL/min/1.73 m2 defines CKD. Patients with eGFR values>=60 mL/min/1.73 m2 may also have CKD if evidence ofpersistent proteinuria. Additional information may be foundat www.kidney.org. SODIUM 144 mmol/L (136-145) POTASSIUM 3.6 mmol/L (3.5-5.1) CHLORIDE 105 mmol/L (98-107) CARBON DIOXIDE 26 mmol/L (21-32) CALCIUM 9.2 mg/dL (8.5-10.1) TOTAL PROTEIN 8.1 g/dL (6.4-8.2) ALBUMIN 5.1 H g/dL (3.3-5.0) BILIRUBIN, TOTAL 0.4 mg/dL (0.0-1.0) ALKALINE PHOSPHATASE 71 U/L (46-116) AST (SGOT) 16 U/L (15-37) ALT (SGPT) 26 U/L (12-78) LIPASE 173 U/L (73-393) . PROGRESS AND PROCEDURES Course of Care: 23:02 03/18/17. very angry. no Mr. Mckeon has a very difficult situation. He has significant constant pain with severe exacerbations. There has never been any indication of an acute surgical abdomen. He states that he did quit cannabis because of his pain. His urine toxicology is positive for cannabis and opioids and here is no corresponding medicine on his medication list. He has a history of an extrapyramidal reaction which he believes is from Benadryl. Because of the severity of his symptoms and the undesirability of opioids, I gave him IM Cogentin and Haldol. He probably had an extrapyramidal reaction to the Haldol. I discussed the risk extensively prior to giving the medication. We both felt that the current severe symptoms warranted the risk of an extrapyramidal reaction. He and his mother believe that no one cares and that he always gets the brush off. I tried fairly unsuccessfully to communicate that we do care very much but that his condition is extremely difficult to care for. I gave several suggestions for ways to move forward with his PCP. HE DEVELOPED SEVERAL HIVES ON HIS BACK WHILE IN THE ED. HE STATES THAT FREQUENTLY HAS HIVES WITH HIS ABDOMINAL PAIN. THAT MAY BE A CLUE BUT CANNOT BE ACTED UPON IN THE ED. HE ALSO MAY NEED PAIN MANAGEMENT REFERRAL. Disposition: Discharged. CLINICAL IMPRESSION Abdominal pain. EXTRAPRYAMADAL REACTION URTICARIA. CANNABIS ABUSE. INSTRUCTIONS (THE COGENTIN IS TO TREAT THE FIGETY FEELING ASK YOUR DR IF THERE IS A CONNECTION BETWEEN YOU HIVES AND YOUR ABDOMINAL PAIN ASK YOU PCP IF YOU NEED A PAIN MANAGEMENT REFERRAL.). Prescription Medications: Cogentin 1 mg: every 8 hours. Dispense ten (10). No refills. Follow-up: Follow up with your doctor [facility]. Understanding of the discharge instructions verbalized by patient and family. (Electronically signed by Yogi Hardy MD 03/21/2017 10:43)
--- NOTE | 2017-03-18 23:18 | ED CLINICAL REPORT ---
Clinical Report - Physicians/Mid Levels [facility] [address] [place] [address] 03/18/2017 20:48 Patient: GHASSAN CISNEROS Time Seen: 21:15. Arrived- By private vehicle. Historian- patient and family. HISTORY OF PRESENT ILLNESS Chief Complaint: ABDOMINAL PAIN. At its maximum, severity described as severe. When seen in the E.D., severity described as severe. It is described as "pain" and it is described as located in the upper abdomen. This started about 11 years ago, worse for days to weeks. and is still present. It has been constant. The patient has had nausea. No vomiting or diarrhea. (11 years 4 days worse). Similar symptoms previously: Many times. ( On a prior visit he did well with haldol and benadryl.. But subsequently he had a dystonic reacttion to Benadryl by his history.). REVIEW OF SYSTEMS No constipation, black stools, difficulty with urination, pain with urination or bloody stools. No fever, sore throat, blurred vision, chest pain or difficulty breathing. No cough, joint pain or skin rash. The patient has had a headache. 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 Problems: Sick Contact. Irritable Bowel Syndrome. Substance Abuse. Gastritis. Gastroesophageal Reflux Disease. Abdominal Pain. Vomiting. Additional Surgeries: Adenoidectomy. Endoscopy []. Tonsillectomy. SOCIAL HISTORY Current every day smoker. History of drug use By urine tox screen: marijuana. ADDITIONAL NOTES The nursing notes have been reviewed. PHYSICAL EXAM Vital Signs: 03/18/2017 23:50 BP: 110/62. HR: 73. RR: 16. O2 saturation: 99%. Pain level now: 11/29. 03/18/2017 21:00 BP: 110/74. HR: 76. RR: 22. O2 saturation: 100%. Temp: 98.3 F. Pain level now: 06/01. Appearance: Alert. Patient in severe distress. (Writhing and clenching fists). Eyes: No scleral icterus. ENT: Pharynx normal. Respiratory: No respiratory distress. Breath sounds normal. Chest nontender. Abdomen: Mild tenderness diffusely. Bowel sounds normal. Mass present. No rebound tenderness or guarding. Back: Normal inspection. Skin: Skin warm. Normal skin color. Extremities: Extremities exhibit normal ROM. No lower extremity edema. LABS, X-RAYS, AND EKG Laboratory Tests: UA-Culture if indicated: (ASHLEIGH: 03/18/2017 21:12) ( [facility] 03/18/2017 22:30) Final results Test Result Flag Units (Reference) URINE COLOR YELLOW URINE APPEARANCE CLEAR URINE GLUCOSE NEGATIVE (NEGATIVE) URINE BILIRUBIN NEGATIVE (NEGATIVE) URINE KETONE NEGATIVE (NEGATIVE) URINE SPECIFIC GRAVITY 1.025 (1.010-1.030) URINE PH 6.0 (5.0-8.0) URINE PROTEIN NEGATIVE (NEGATIVE) URINE UROBILINOGEN 0.2 EU/dL (0.2-1.0) URINE NITRITE NEGATIVE (NEGATIVE) URINE BLOOD NEGATIVE (NEGATIVE) URINE LEUK ESTERASE NEGATIVE (NEGATIVE) URINE RBC NONE SEEN rbc/hpf (0-1) URINE WBC 0-1 wbc/hpf (0-1) URINE EPITHELIAL CELLS RARE EPI/hpf (0-5) URINE BACTERIA TRACE (<1+) (NONE SEEN) URINE COMMENT CULT NOT INDICATED URINE CULTURES ARE SET-UP BASED ON THE FOLLOWING CRITERIA:POSITIVE NITRITEPOSITIVE LEUKOCYTE ESTERASEGREATER THAN 10 WHITE BLOOD CELLSMODERATE (2+) OR GREATER BACTERIA CBC w Diff: (ASHLEIGH: 03/18/2017 22:24) ( [facility] 03/18/2017 22:39) Final results Test Result Flag Units (Reference) WHITE BLOOD COUNT 10.9 K/uL (4.5-11.5) RED BLOOD COUNT 5.02 M/uL (4.50-5.90) HEMOGLOBIN 15.0 gm/dL (13.5-17.5) HEMATOCRIT 44.3 % (41.0-53.0) MEAN CELL VOLUME 88 fL (80-100) MEAN CORPUSCULAR HGB 30 pg (26-34) MEAN CORPUSCULAR HGB CONC 34 g/dL (31-37) RED CELL DISTRIBUTION WIDTH 13.1 % (11.6-14.8) PLATELET COUNT 267 K/uL (150-400) NEUTROPHIL % 66.3 % (50-75) LYMPH % 28.2 % (25-40) MONO % 3.3 % (3-14) EOSINOPHIL % 2.0 % (0-4) BASOPHIL % 0.2 % (0-2) Urine Drug Screen: (ASHLEIGH: 03/18/2017 21:12) ( [facility] 03/18/2017 22:09) Final results Test Result Flag Units (Reference) AMPHETAMINE/METHAMPHETAMINE NEGATIVE (NEGATIVE) BARBITURATE NEGATIVE (NEGATIVE) BENZODIAZEPINE NEGATIVE (NEGATIVE) CANNABINOID POSITIVE H (NEGATIVE) COCAINE NEGATIVE (NEGATIVE) ECSTASY NEGATIVE (NEGATIVE) METHADONE NEGATIVE (NEGATIVE) OPIATE POSITIVE H (NEGATIVE) The urine drug screen is a qualitative screening test fordrug overdose and abuse. All screen results should beconsidered as presumptive.Drugs screened for are as follows:BenzodiazepinesCocaineAmphetamines/MetamphetaminesTHC (Tetrahydrocannabinol)OpiatesBarbituratesEcstasyMethadonePositive results are unconfirmed. For confirmation, notifythe lab for the specimen to be sent to the reference lab.All confirmations must be performed by a differentmethodology.The ingestion of natural herbal and plant productscontaining Ephedra/Ephedra metabolites can produce in urineone or more substances capable of cross reacting withamphetamine/methamphetamine immunoassays. These testsprovide a preliminary result only. A more specificalternative chemical method must be used to obtain aconfirmed analytical result. CMP: (ASHLEIGH: 03/18/2017 22:24) ( [facility] 03/18/2017 22:51) Final results Test Result Flag Units (Reference) GLUCOSE 95 mg/dL (70-110) BUN 20 H mg/dL (7-18) CREATININE 1.1 mg/dL (0.6-1.3) Estimated GFR >60 mL/min Estimated GFR- >60 mL/min Note: Persistent reduction over 3 months in eGFR<60 mL/min/1.73 m2 defines CKD. Patients with eGFR values>=60 mL/min/1.73 m2 may also have CKD if evidence ofpersistent proteinuria. Additional information may be foundat www.kidney.org. SODIUM 144 mmol/L (136-145) POTASSIUM 3.6 mmol/L (3.5-5.1) CHLORIDE 105 mmol/L (98-107) CARBON DIOXIDE 26 mmol/L (21-32) CALCIUM 9.2 mg/dL (8.5-10.1) TOTAL PROTEIN 8.1 g/dL (6.4-8.2) ALBUMIN 5.1 H g/dL (3.3-5.0) BILIRUBIN, TOTAL 0.4 mg/dL (0.0-1.0) ALKALINE PHOSPHATASE 71 U/L (46-116) AST (SGOT) 16 U/L (15-37) ALT (SGPT) 26 U/L (12-78) LIPASE 173 U/L (73-393) . PROGRESS AND PROCEDURES Course of Care: 23:02 03/18/17. very angry. no Mr. Mckeon has a very difficult situation. He has significant constant pain with severe exacerbations. There has never been any indication of an acute surgical abdomen. He states that he did quit cannabis because of his pain. His urine toxicology is positive for cannabis and opioids and here is no corresponding medicine on his medication list. He has a history of an extrapyramidal reaction which he believes is from Benadryl. Because of the severity of his symptoms and the undesirability of opioids, I gave him IM Cogentin and Haldol. He probably had an extrapyramidal reaction to the Haldol. I discussed the risk extensively prior to giving the medication. We both felt that the current severe symptoms warranted the risk of an extrapyramidal reaction. He and his mother believe that no one cares and that he always gets the brush off. I tried fairly unsuccessfully to communicate that we do care very much but that his condition is extremely difficult to care for. I gave several suggestions for ways to move forward with his PCP. HE DEVELOPED SEVERAL HIVES ON HIS BACK WHILE IN THE ED. HE STATES THAT FREQUENTLY HAS HIVES WITH HIS ABDOMINAL PAIN. THAT MAY BE A CLUE BUT CANNOT BE ACTED UPON IN THE ED. HE ALSO MAY NEED PAIN MANAGEMENT REFERRAL. Disposition: Discharged. CLINICAL IMPRESSION Abdominal pain. EXTRAPRYAMADAL REACTION URTICARIA. CANNABIS ABUSE. INSTRUCTIONS (THE COGENTIN IS TO TREAT THE FIGETY FEELING ASK YOUR DR IF THERE IS A CONNECTION BETWEEN YOU HIVES AND YOUR ABDOMINAL PAIN ASK YOU PCP IF YOU NEED A PAIN MANAGEMENT REFERRAL.). Prescription Medications: Cogentin 1 mg: every 8 hours. Dispense ten (10). No refills. Follow-up: Follow up with your doctor [facility]. Understanding of the discharge instructions verbalized by patient and family. (Electronically signed by Yogi Hardy MD 03/21/2017 10:43)
--- NOTE | 2017-03-18 23:18 | ED ORDER SUMMARY ---
..... Patient: GHASSAN CISNEROS OrderSheet [facility] VisitID: [id number] [address] [place] [address] 41y, M Registration Date/Time: 03/18/2017 ORDER SHEET Weight: 68.0 kg (stated) Allergies: Vicodin, Tramadol, Benadryl GENERAL ORDERS: CBC w Diff Urgent (21:32 03/18/2017 Anna MCCLELLAND) (Ack 21:35 ALawrence ER Tech1) (Collected 22:29 RMarsden R.N.) (22:44 ALawrence ER Tech1) CMP Urgent (21:32 03/18/2017 Anna MCCLELLAND) (Ack 21:35 ALawrence ER Tech1) (Collected 22:29 RMarsden R.N.) (22:44 ALawrence ER Tech1) UA-Culture if indicated Urgent (21:32 03/18/2017 Anna MCCLELLAND) (Ack 21:35 ALawrence ER Tech1) (Collected 21:56 RMarsden R.N.) (22:44 ALawrence ER Tech1) Urine Drug Screen Urgent (21:32 03/18/2017 Anna MCCLELLAND) (Ack 21:35 ALawrence ER Tech1) (Collected 21:56 RMarsden R.N.) (22:44 ALawrence ER Tech1) Lipase Urgent (21:32 03/18/2017 Anna MCCLELLAND) (Ack 21:35 ALawrence ER Tech1) (Collected 22:29 RMarsden R.N.) (22:44 ALawrence ER Tech1) MEDICATION ORDERS: Zofran ODT PO 4 mg (NOW) (21:31 03/18/2017 Anna MCCLELLAND) (Ack 21:56 RMarsden R.N.) (22:47 RMarsden R.N.) Cogentin IM 2 mg (NOW) (21:32 03/18/2017 Anna MCCELLLAND) (Ack 21:56 RMarsden R.N.) (22:19 RMarsden R.N.) Haldol IM 5 mg (NOW) (22:18 03/18/2017 Anna MCCLELLAND) (22:28 RMarsden R.N.) Cogentin IM 2 mg (NOW) (23:18 03/18/2017 Anna MCCLELLAND) (Ack 23:25 RMarsden R.N.) (23:36 RMarsden R.N.) Dilaudid IM 1 mg (HIGH ALERT MEDICATION, NOW) (00:01 03/19/2017 RMarsden R.N. verbal order read back to Anna MCCLELLAND) (0:02 RMarsden R.N.) Verbal order read back and verified IV FLUIDS: IV NS : initial bolus none -, then 1000 mL/hr for X1 (NOW); Urgent (21:31 03/18/2017 Anna MCCLELLAND) (Ack 21:56 RMarsden R.N.) (22:49 RMarsden R.N.) Haldol IV 5 mg (NOW) (22:15 03/18/2017 Anna MCCLELLAND) (Cancelled: lost iv22:17 Anna MCCLELLAND) Dilaudid IV 1 mg (NOW) (23:09 03/18/2017 Anna MCCLELLAND) (Ack 23:25 RMarsden R.N.) (Cancelled: Verbal per Physician0:01 RMarsden R.N.) ORDER SHEET NOTES: [Electronically signed by Mary Valverde R.N. (05:14 03/19/2017)] [Electronically signed by Yogi Hardy MD (10:43 03/21/2017)] [Electronically locked/signed by Mary Valverde R.N. (05:14 03/19/2017)]
--- NOTE | 2017-03-18 23:18 | ED NURSING NOTES ---
Clinical Report - [facility] [address] [place] [address] 03/18/2017 20:48 Patient: GHASSAN CISNEROS TRIAGE Triage time 22:56. Acuity: LEVEL 3. Chief Complaint: ABDOMINAL PAIN. 21:11 03/18/17. Alert. MAYELA COMA SCORE: Mayela Coma Scale: 15- eyes open spontaneously (4); best verbal response- oriented x 4 (5); best motor response- obeys commands (6). --21:11 Mary Valverde R.N. 21:00 03/18/17. BP: 110/74. HR: 76. RR: 22. O2 saturation: 100%. Temp: 98.3 F. Pain level now: 06/01. --21:11 Mary Valverde R.N. Weight: 68 kg stated. Height/Length: 70 inches Per Patient. BMI: 21.5. --21:08 Mary Valverde R.N. Medications None. --21:04 Mary Valverde R.N. Allergies Vicodin.(rash) --21:04 Mary Valverde R.N. Tramadol.(rash) --21:04 Mary Valverde R.N. Benadryl.(anxiety, jittery) --21:05 Mary Valverde R.N. History Arrived by private vehicle. Historian: patient and family. Primary physician (Dr Spears ([facility])). Onset. (4 days ago). ( Patient states he has had 5/10 abd pain for the past 2 weeks, but has had 9/10 pain for the past 4 days. Patient states he has been dealing with this kind of severe abdominal pain for the last 11 years but "doctors can't agree with what's wrong with me."). He has had constipation. ( Patient states he felt worse after eating. He states he has lost weight because of this constant abd pain.). Last oral intake by patient was this afternoon. PAST MEDICAL HX: Immunizations: up-to-date. SOCIAL HX: Heavy tobacco smoker- less than 1 pack per day. No alcohol use or drug use. ( patient states he used to use marijuana for px but has stopped per MD instruction.). FALL RISK ASSESSMENT: Fall risk assessment completed. No fall risk identified. NUTRITIONAL RISK ASSESSMENT: The nutritional risk assessment revealed no deficiencies. FUNCTIONAL ASSESSMENT: Functional assessment: no impairments noted. LEARNING NEEDS ASSESSMENT: The learning needs assessment revealed no barriers. SKIN INTEGRITY ASSESSMENT: Skin integrity risk assessment completed. No skin integrity risk identified. --21:11 Mary Valverde R.N. PROBLEMS: Adverse Drug Reaction. Sick Contact. Irritable Bowel Syndrome. Substance Abuse. Gastritis. Gastroesophageal Reflux Disease. Abdominal Pain. Vomiting. Immunizations. --21:05 Mary Valverde R.N. ADDITIONAL SURGERIES: Adenoidectomy. Endoscopy []. Tonsillectomy. --21:05 Mary Valverde R.N. Interventions ID band on patient. To treatment room. --21:11 Mary Valverde R.N. PHYSICAL ASSESSMENT 21:05. Ambulatory to room. GENERAL / NEURO / PSYCH: Alert. Oriented X 4. Appears in pain. HEENT: Mucous membranes are pink. RESPIRATORY: Mild respiratory distress (tachypneic). Breath sounds within normal limits. CVS: Capillary refill less than 2 seconds. GI / : Abdomen soft. Abdominal tenderness diffusely. Bowel sounds within normal limits. SKIN: Skin is warm and dry. Skin rash (pt has two hives on his back.). --00:00 Mary Valverde R.N. NURSING PROGRESS NOTES 22:14 03/18/2017 Cogentin (Benztropine Mesylate) IM 2 mg given. Given in the left anterior lateral thigh. Allergies verified, confirmed 5 rights and sedative warning given to the patient. --22:19 Mary Valverde R.N. 22:27 03/18/2017 Site #1 started via IV in the left antecubital space with an 20g angiocath; three attempts. Blood drawn: rainbow set. Labeled in the presence of the patient and sent to the lab. Saline lock flushed with 10 mL saline (two attempts made by this RN, IV placed by DAVID Henry). --22:49 Mary Valverde R.N. 22:28 03/18/2017 HALDOL (Haloperidol Lactate) IM 5 mg given. Given in the right deltoid. Allergies verified, confirmed 5 rights and sedative warning given to the patient. --22:28 Mary Valverde R.N. 22:28 03/18/2017 Zofran ODT (Ondansetron) PO Tablets 4 mg given. Allergies verified and confirmed 5 rights. --22:47 Mary Valverde R.N. 22:29 03/18/2017 Started bag #1 1000 mL IV Fluids IV NS (Saline); bolus of 1000 mL over 1 hour(s) via site #1 via IV pump. Allergies verified and confirmed 5 rights. IV patency established. IV site checked: no pain, redness, or swelling. IV flushed thoroughly pre- and post-medication administration. Completed per protocol. --22:49 Mary Valverde R.N. 23:00 03/18/2017 HALDOL IM Response. ED physician notified (ED phys notified of pt's jitteriness after haldol administration. See nursing notes for details.). --00:05 Mary Valverde R.N. 23:00 03/18/2017 Zofran ODT PO Response: no adverse reaction. --00:05 Mary Valverde R.N. 23:22 03/18/2017 Dilaudid (HYDROmorphone HCl PF) IM 1 mg given. Given in the left deltoid. Allergies verified, confirmed 5 rights and sedative warning given to the patient and patient's family. --00:02 Mary Valverde R.N. 23:26 03/18/2017 Cogentin (Benztropine Mesylate) IM 2 mg given. Given in the left anterior lateral thigh. Allergies verified, confirmed 5 rights and sedative warning given to the patient. --23:36 Mary Valverde R.N. 21:15. Patient gowned. Two patient identifiers checked. Call light placed in reach. Side rails up x 2. Bed placed in lowest position. Brakes of bed on. ( During triage, pt's mother was tearful, explaining that patient has been to "countless doctors over the years and none of them believe him or know what's wrong. They just think he's a junkie and don't listen." Patient and his mother both seemed very upset, so this RN assured them that the care they receive here will be free of judgment.). --03:41 Mary Valverde R.N. 21:25. ( ED MD in room talking to patient. Patient's mother became upset when ED MD said that the treatment for the patient's condition would be haldol and cogentin and ledt the room. Patient also reported frustration but agreed to try those medications.). --03:43 Mary Valverde R.N. 22:40. ( Patient is more agitated and jittery. He states "whatever you gave me made everything worse. I feel terrible." Patient's mother is tearful and states "no one listens to him. We are being treated so bad for no reason". This RN explained to patient and his mother that we do care about the patient's pain, and the MD thought that the medications provided would assist the patient. Patient states he wants to go home and wants his IV out. ED MD notified.). --03:50 Mary Valverde R.N. 23:01. ( ED MD and this RN at bedside. ED MD explaining to patient that we want to help him. ED MD asks patient additional assessment questions. Patient is very agitated at the beginning of conversation with MD. He is clenching his fists and punches his head. He states "Whatever this pain is is ruining my life. I was supposed to be more than this". Patient requests pain medication for his symptoms. ED MD agrees. While still fidgeting, patient becomes noticeably calmer. Patient is counseled to find a PCP who will refer him to a pain clinic or steam service inspector for further testing.). --03:55 Mary Valverde R.N. <<STRICKEN ENTRY-- 23:15. Patient gowned. Two patient identifiers checked. Call light placed in reach. Side rails up x 2. Bed placed in lowest position. Brakes of bed on. ( During triage, pt's mother was tearful, explaining that patient has been to "countless doctors over the years and none of them believe him or know what's wrong. They just think he's a junkie and don't listen." Patient and his mother both seemed very upset, so this RN assured them that the care they receive here will be free of judgment.). --00:10 Mary Valverde R.N. --END STRIKE>> Correction --03:40 Mary Valverde R.N. <<STRICKEN ENTRY-- 23:25. ( ED MD in room talking to patient. Patient's mother became upset when ED MD said that the treatment for the patient's condition would be haldol and cogentin and left the room. Patient also reported frustration but said he would try those medications.). --00:24 Mary Valverde R.N. --END STRIKE>> Correction --03:42 Mary Valverde R.N. 23:46. Reassessment after medication administered. He is calm and has had no adverse reaction. Overall patient status is improved- he states feels better. --05:11 Mary Valverde R.N. 23:00 03/18/2017 IV Fluids IV NS Discontinued: bag #1 STOPPED. Total amount infused: 200 mL. IV patency established. IV site checked: no pain, redness, or swelling. IV flushed thoroughly. (Meds dc'd because patient pulled at his IV, making it no longer useable.). --05:14 Mary Valverde R.N. 23:50 03/18/2017 Dilaudid IM Response: no adverse reaction pain is improving. Symptoms have improved the patient feels better. 03/18/2017 23:50 BP: 110/62. HR: 73. RR: 16. O2 saturation: 99%. Pain level now: 11/29. --05:12 Mary Valverde R.N. 23:50 03/18/2017 Cogentin IM Response: no adverse reaction pain is improving. Symptoms have improved the patient feels better. 03/18/2017 23:50 BP: 110/62. HR: 73. RR: 16. O2 saturation: 99%. Pain level now: 11/29. --05:12 Mary Valverde R.N. DISPOSITION / DISCHARGE 23:52. Departure time: 23:52. No learning barriers present. Discharge instructions provided and reviewed with the patient and parent. Reviewed warnings. Reviewed medication(s). Treatments reviewed. Reviewed referrals. Patient and parent verbalized understanding. Written instructions provided in [place]. The patient was discharged home and accompanied by parent. He left the Emergency Department ambulatory and via private vehicle. Parent driving. --23:59 Mary Valverde R.N. 23:50 03/18/17. BP: 110/62. HR: 73. RR: 16. O2 saturation: 99%. Temp: deferred. Pain level now: 11/29. --23:59 Mary Valverde R.N. Locked/Released at 03/19/2017 5:14 by Mary Valverde R.N.
--- NOTE | 2017-03-18 23:18 | ED ORDER SUMMARY ---
..... Patient: GHASSAN CISNEROS OrderSheet [facility] VisitID: [id number] [address] [place] [address] 41y, M Registration Date/Time: 03/18/2017 ORDER SHEET Weight: 68.0 kg (stated) Allergies: Vicodin, Tramadol, Benadryl GENERAL ORDERS: CBC w Diff Urgent (21:32 03/18/2017 Anna MCCLELLAND) (Ack 21:35 ALawrence ER Tech1) (Collected 22:29 RMarsden R.N.) (22:44 ALawrence ER Tech1) CMP Urgent (21:32 03/18/2017 Anna MCCLELLAND) (Ack 21:35 ALawrence ER Tech1) (Collected 22:29 RMarsden R.N.) (22:44 ALawrence ER Tech1) UA-Culture if indicated Urgent (21:32 03/18/2017 Anna MCCLELLAND) (Ack 21:35 ALawrence ER Tech1) (Collected 21:56 RMarsden R.N.) (22:44 ALawrence ER Tech1) Urine Drug Screen Urgent (21:32 03/18/2017 Anna MCCLELLAND) (Ack 21:35 ALawrence ER Tech1) (Collected 21:56 RMarsden R.N.) (22:44 ALawrence ER Tech1) Lipase Urgent (21:32 03/18/2017 Anna MCCLELLAND) (Ack 21:35 ALawrence ER Tech1) (Collected 22:29 RMarsden R.N.) (22:44 ALawrence ER Tech1) MEDICATION ORDERS: Zofran ODT PO 4 mg (NOW) (21:31 03/18/2017 Anna MCCLELLAND) (Ack 21:56 RMarsden R.N.) (22:47 RMarsden R.N.) Cogentin IM 2 mg (NOW) (21:32 03/18/2017 Anna MCCLELLAND) (Ack 21:56 RMarsden R.N.) (22:19 RMarsden R.N.) Haldol IM 5 mg (NOW) (22:18 03/18/2017 Anna MCCLELLAND) (22:28 RMarsden R.N.) Cogentin IM 2 mg (NOW) (23:18 03/18/2017 Anna MCCLELLAND) (Ack 23:25 RMarsden R.N.) (23:36 RMarsden R.N.) Dilaudid IM 1 mg (HIGH ALERT MEDICATION, NOW) (00:01 03/19/2017 RMarsden R.N. verbal order read back to Anna MCCLELLAND) (0:02 RMarsden R.N.) Verbal order read back and verified IV FLUIDS: IV NS : initial bolus none -, then 1000 mL/hr for X1 (NOW); Urgent (21:31 03/18/2017 Anna MCCLELLAND) (Ack 21:56 RMarsden R.N.) (22:49 RMarsden R.N.) Haldol IV 5 mg (NOW) (22:15 03/18/2017 Anna MCCLELLAND) (Cancelled: lost iv22:17 Anna MCCLELLAND) Dilaudid IV 1 mg (NOW) (23:09 03/18/2017 Anna MCCLELLAND) (Ack 23:25 RMarsden R.N.) (Cancelled: Verbal per Physician0:01 RMarsden R.N.) ORDER SHEET NOTES: [Electronically signed by Mary Valverde R.N. (05:14 03/19/2017)] [Electronically signed by Yogi Hardy MD (10:43 03/21/2017)] [Electronically locked/signed by Mary Valverde R.N. (05:14 03/19/2017)]
--- NOTE | 2017-03-21 10:44 | ED DISCHARGE INSTRUCTIONS ---
Patient: GHASSAN CISNEROS General Instructions [facility] VisitID: [id number] [place] [address] 41y, M Registration Date/Time: 03/18/2017 Abdominal pain. EXTRAPRYAMADAL REACTION URTICARIA. CANNABIS ABUSE. INSTRUCTIONS (THE COGENTIN IS TO TREAT THE FIGETY FEELING ASK YOUR DR IF THERE IS A CONNECTION BETWEEN YOU HIVES AND YOUR ABDOMINAL PAIN ASK YOU PCP IF YOU NEED A PAIN MANAGEMENT REFERRAL.). Prescription Medications: Cogentin 1 mg: every 8 hours. Dispense ten (10). No refills. Follow-up: Follow up with your doctor [facility]. Understanding of the discharge instructions verbalized by patient and family. ADDITIONAL INFORMATION Abdominal Pain,Uncertain Cause [Male] Based on your visit today, the exact cause of your abdominalpain is not clear. Your exam and tests do not indicate a dangerous cause at this time. However, the signs of a serious problem may take more time to appear. Although your evaluation was reassuring today, sometimes early in the course of many conditions, exam and lab tests can appear normal. Therefore, it is important for you to watch for any new symptoms or worsening of your condition. Causes It may not be obvious what caused your symptoms. Pay attention to things that do seem to make your symptoms worse or better and discuss this with your doctor when you follow up. Diagnosis The evaluation of abdominal pain in the emergency department may onlyrequire an exam by the doctor or it may include blood, urine or imaging studies, depending on many factors. Sometimes exams and tests can identify a cause but in many cases, a clear cause is not found. Further testing at follow up visits may help to suggest a clear diagnosis. Home Care Rest as much as possible until your next exam. Try to avoid any medications (unless otherwise directed by your doctor), foods, activities, or other factors that you may have contributed to your symptoms. Try to eat foods that you know that you have tolerated well in the past. Certain diets may be recommended for some conditions that cause abdominal pain. However, since the cause of your symptoms may not be clear, discuss your diet more with your primary care provider or specialist for further recommendations. Eating several small meals per day as opposed to 2 or 3 larger meals may help. Monitor closely for anything that may make your symptoms worse or better. Pay close attention to symptoms below that may indicate worsening of your condition. Follow Up and Precautions See your doctoras instructed or sooneror if your symptoms are not improving.In some cases, you may need more testing. When to Seek Medical Attention Contact your doctor or see medical attention ifany of the following occur: Pain is becoming worse You are unable to take your medications due to excessive vomiting Swelling of the abdomen Fever of 100.4F (38C) or higher, or as directed by your health care provider Blood in vomit or bowel movements (dark red or black color) Jaundice (yellow color of eyes and skin) New onset of weakness, dizziness or fainting New onset of chest, arm, back, neck or jaw pain You have been given the following additional information: Abdominal Pain, Unknown Cause, (Male) (Electronically signed by Yogi Hardy MD 03/21/2017 10:43)
--- NOTE | 2017-03-21 10:44 | ED MED RECONCILIATION SUMMARY ---
Patient: GHASSAN CISNEROS Medication Reconciliation Report [facility] VisitID: [id number] [address] [place] [place] [address] 41y, M Registration Date/Time: 03/18/2017 Weight: 68.0 kg Height/Length: 70 in. BMI: 21.5 ALLERGIES: Benadryl, Tramadol, Vicodin The patient's Home Medications are listed below: NONE. The source(s) of the original Home Medication information: Not obtained. The following Medications were given to the patient in the Emergency Department: Cogentin [IM] IM 2 mg, administered: 03/18/2017 10:14:00 PM HALDOL [IM] IM 5 mg, administered: 03/18/2017 10:28:00 PM Zofran ODT [PO] PO 4 mg, administered: 03/18/2017 10:28:00 PM IV NS IV Fluids bolus 1000 mL over 1 hour(s), administered: 03/18/2017 10:29:00 PM Cogentin [IM] IM 2 mg, administered: 03/18/2017 11:26:00 PM Dilaudid [IM] IM 1 mg, administered: 03/18/2017 11:22:00 PM The following Medications were prescribed to the patient: Cogentin 1 mg: every 8 hours. Dispense ten (10). No refills. -- Yogi Hardy MD
--- NOTE | 2017-03-21 10:44 | ED MAR SUMMARY ---
..... Medication Administration Record [facility] [address] [place] [address] Patient: GHASSAN CISNEROS Visit ID: [id number] 41y, M Weight: 68.0 kg Height/Length: 70 in BMI: 21.5 ALLERGIES: Benadryl, Tramadol, Vicodin Given 22:14 03/18/2017 Mary Valverde R.N. Medication Administered: COGENTIN [IM] (BENZTROPINE MESYLATE), Dose: 2 mg IM. Medication Ordered: Cogentin IM 2 mg (NOW). Given 22:03/18/2017 Mary Valverde R.N. Medication Administered: HALDOL [IM] (HALOPERIDOL LACTATE), Dose: 5 mg IM. Medication Ordered: Haldol IM 5 mg (NOW). Given 22:03/18/2017 Mary Valverde R.N. Medication Administered: ZOFRAN ODT [PO] (ONDANSETRON), Dose: 4 mg Tablets PO. Medication Ordered: Zofran ODT PO 4 mg (NOW). Start 22:29 03/18/2017 Mary Valverde R.N., Stop 23:00 03/18/2017 Mary Valverde R.N. Medication Administered: IV NS (SALINE), Dose: IV Fluids, Bolus: 1000 mL over 1 hour(s), Dispensed: 1000 mL bag, Site: #1 left . Medication Ordered: IV NS : initial bolus none -, then 1000 mL/hr for X1 (NOW); Urgent. Given 23:03/18/2017 Mary Valverde R.N. Medication Administered: DILAUDID [IM] (HYDROMORPHONE HCL PF), Dose: 1 mg IM. Medication Ordered: Dilaudid IM 1 mg (HIGH ALERT MEDICATION, NOW). Given 23:03/18/2017 Mary Valverde R.N. Medication Administered: COGENTIN [IM] (BENZTROPINE MESYLATE), Dose: 2 mg IM. Medication Ordered: Cogentin IM 2 mg (NOW).
--- NOTE | 2017-03-21 10:44 | ED MED RECONCILIATION SUMMARY ---
Patient: GHASSAN CISNEROS Medication Reconciliation Report [facility] VisitID: [id number] [address] [place] [address] 41y, M Registration Date/Time: 03/18/2017 Weight: 68.0 kg Height/Length: 70 in. BMI: 21.5 ALLERGIES: Benadryl, Tramadol, Vicodin The patient's Home Medications are listed below: NONE. The source(s) of the original Home Medication information: Not obtained. The following Medications were given to the patient in the Emergency Department: Cogentin [IM] IM 2 mg, administered: 03/18/2017 10:14:00 PM HALDOL [IM] IM 5 mg, administered: 03/18/2017 10:28:00 PM Zofran ODT [PO] PO 4 mg, administered: 03/18/2017 10:28:00 PM IV NS IV Fluids bolus 1000 mL over 1 hour(s), administered: 03/18/2017 10:29:00 PM Cogentin [IM] IM 2 mg, administered: 03/18/2017 11:26:00 PM Dilaudid [IM] IM 1 mg, administered: 03/18/2017 11:22:00 PM The following Medications were prescribed to the patient: Cogentin 1 mg: every 8 hours. Dispense ten (10). No refills. -- Yogi Hardy MD
--- NOTE | 2017-03-21 10:44 | ED MAR SUMMARY ---
..... Medication Administration Record [facility] [address] [place] [address] Patient: GHASSAN CISNEROS Visit ID: [id number] 41y, M Weight: 68.0 kg Height/Length: 70 in BMI: 21.5 ALLERGIES: Benadryl, Tramadol, Vicodin Given 22:14 03/18/2017 Mary Valverde R.N. Medication Administered: COGENTIN [IM] (BENZTROPINE MESYLATE), Dose: 2 mg IM. Medication Ordered: Cogentin IM 2 mg (NOW). Given 22:03/18/2017 Mary Valverde R.N. Medication Administered: HALDOL [IM] (HALOPERIDOL LACTATE), Dose: 5 mg IM. Medication Ordered: Haldol IM 5 mg (NOW). Given 22:03/18/2017 Mary Valverde R.N. Medication Administered: ZOFRAN ODT [PO] (ONDANSETRON), Dose: 4 mg Tablets PO. Medication Ordered: Zofran ODT PO 4 mg (NOW). Start 22:29 03/18/2017 Mary Valverde R.N., Stop 23:00 03/18/2017 aMry Valverde R.N. Medication Administered: IV NS (SALINE), Dose: IV Fluids, Bolus: 1000 mL over 1 hour(s), Dispensed: 1000 mL bag, Site: #1 left . Medication Ordered: IV NS : initial bolus none -, then 1000 mL/hr for X1 (NOW); Urgent. Given 23:03/18/2017 Mary Valverde R.N. Medication Administered: DILAUDID [IM] (HYDROMORPHONE HCL PF), Dose: 1 mg IM. Medication Ordered: Dilaudid IM 1 mg (HIGH ALERT MEDICATION, NOW). Given 23:03/18/2017 Mary Valverde R.N. Medication Administered: COGENTIN [IM] (BENZTROPINE MESYLATE), Dose: 2 mg IM. Medication Ordered: Cogentin IM 2 mg (NOW).
== END 2017-03-18 23:52 | disposition home or self-care (01) ==
LOC: ED SRH 20:48
DX: R10.10 Upper abdominal pain, unspecified (principal); G25.9 Extrapyramidal and movement disorder, unspecified; L50.9 Urticaria, unspecified; F12.10 Cannabis abuse, uncomplicated; F17.200 Nicotine dependence, unspecified, uncomplicated
CPT/HCPCS: 90004; 90100; 92235; 92760; 92761; 92762; 92763; 92764; 92765; 92766; 92767; 95059